=== PATIENT | female | born 1930 | race Caucasian/White ===

== ENCOUNTER 2016-10-13 12:17 | Observation (INO) ==
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
--- NOTE | 2016-10-13 13:07 | Emergency Department Note ---
Disposition Clinical Impression: Hip pain, right, Tendon tear Disposition: Admitted As Inpatient Condition: Fair General Adult HPI - General Chief complaint: ED Fall Stated complaint: fall, R hip increaseed pain Time Seen by Provider: 10/13/16 12:27 Source: patient, family Limitations: no limitations - History of Present Illness Pain Scale: 0 - Related Data Home Medications Medication Instructions Recorded Confirmed Carbidopa/Levodopa 1 tab PO BID 06/19/16 10/13/16 [Carbidopa-Levodopa 25-100 Tab] Nuedexta 10-5 Mg Capsule 1 cap PO QID 06/19/16 10/13/16 Quetiapine Fumarate [Seroquel] 25 mg PO BID 06/19/16 10/13/16 Alendronate Sodium 70 mg PO SA 10/13/16 10/13/16 Ergocalciferol (VITAMIN D2) 50,000 unit PO SA 10/13/16 10/13/16 [Vitamin D2] Ketoconazole Shampoo [Nizoral 1 appl TP 2XW 10/13/16 10/13/16 Shampoo] Previous Rx's Medication Instructions Recorded OxyCODONE/APAP 5/325 [Percocet 1 each PO Q6HR PRN #20 tablet 10/16/16 5/325 MG] Allergies Allergy/AdvReac Type Severity Reaction Status Date / Time Sulfa (Sulfonamide Allergy See Verified 06/19/16 08:00 Antibiotics) Comments Constitutional: Denies: fever, chills, weakness Cardiovascular: Denies: chest pain, palpitations, dyspnea on exertion, syncope Respiratory: Denies: cough, dyspnea, wheezes Gastrointestinal: Denies: abdominal pain, nausea, vomiting, diarrhea, constipation Genitourinary: Denies: urgency, dysuria, frequency Musculoskeletal: Reports: back pain. Denies: neck pain Integumentary: Denies: rash, abrasion Neurological: Reports: abnormal gait. Denies: headache, weakness, numbness, paresthesias, confusion, vertigo Hematological/Lymphatic: Denies: easy bleeding, easy bruising Past Medical History - Past Medical History Medical history: Reports: asthma, other Surgical history: Reports: hysterectomy, orthopedic, other Psychiatric history: Reports: no psych history - Social History Smoking Status: Never smoker Smokeless Tobacco Status: No Alcohol use: Reports: none Drug use: Reports: none Physical Exam - General Limitations: no limitations General appearance: alert Course - Reevaluation(s) Reevaluation #1: I saw the patient with resident, Dr. Peter. Patient presents with right hip pain. She had a fall couple days ago and was actually seen here in the emergency department at which time she had plain x-rays that were negative. She was discharged home. She has since had another fall at home. She has frequent falls at home because she refuses to use her walker. Today he went to the doctor's office and the patient could not bear weight on her right leg so her physician sent her here to be reevaluated. Looking at the imaging studies from the other day there is no fracture seen but she has a lot of osteopenia. On my examination here the patient has pain in the groin with range of motion but not axial load of the hip. We will do an MRI to evaluate for hip fractures. This is a study of choice because the osteopenia. We consult with the radiologist prior to ordering the MRI in order to get the recommendation as to which is the best test. We will get the patient some pain medications and get the MRI. If MRI is positive then we will admit to orthopedics. If the MRI is negative try to ambulate the patient with a walker. Time: 13:06 Reevaluation #2: MRI came back showing an iliopsoas muscle tear. That explains the patient's symptoms. We got her up and ambulate her with a walker. She ambulated well, carrying the walker as she ambulated. She is not physically incapable of getting around and does not need to be admitted to the hospital for physical rehabilitation. However, it seems that the patient's home environment is unsafe. The patient continues to move around without her walker and is continuing to fall down and reinjure herself. Also bruises on her face from previous falls. Family members state that they are not able to give her the care that she seems to be needing. She has other issues including Parkinson's. She also has dementia. It sounds like she is becoming more than the family can handle her home. Had a long [id number] conversation with family about fpc placement and it was felt that since they cannot care for her at home the way that she needs to be cared for and she is continuing to put herself in dangerous positions by getting up and walking around without that walker, is better for her to be in a fpc where she can be watched more closely. We had already had social media strategist in there trying to get the patient placed directly from the ER but because of her insurance we are unable to do so. Patient has to be admitted to the hospital for a three-day stay in order to be placed in a fpc. We will talk to the hospitalists and make this arrangement. Time: 16:57 Vital Signs Temperature 97.3 F L 10/13/16 12:18 Pulse Rate 81 10/13/16 12:18 Respiratory Rate 18 10/13/16 12:18 Blood Pressure 153/71 10/13/16 12:18 O2 Sat by Pulse Oximetry 98 10/13/16 12:18 Temperature 97.8 F 10/17/16 11:11 Pulse Rate 84 10/17/16 11:11 Respiratory Rate 13 10/17/16 11:11 Blood Pressure 125/67 10/17/16 11:11 O2 Sat by Pulse Oximetry 94 L 10/17/16 11:11 Oxygen Delivery Oxygen Delivery Room Air Medical Decision Making - Lab Data Result diagrams: 10/14/16 04:43 10/16/16 04:27 Attestation Statement - Attestation Attestation: I, Dr. Longo, examined this patient [id number] and my medical decision- making was reviewed with Dr. Peter, Resident Physician. I agree with the documented findings, disposition and treatment plan as described except to the extent set forth below. Please see my progress notes for details.
[2016-10-13] MEDS ORDERED: Acetaminophen 325 MG TABLET PO ONE (15:18)
[2016-10-13] MEDS ORDERED: Ondansetron 4 MG/2 ML VIAL IVP PRN (18:15)
[2016-10-13] MEDS ORDERED: Naloxone 0.4 MG/ML INJ IVP PRN (18:15)
--- NOTE | 2016-10-13 18:29 | Internal Med History&Physical ---
Date of Encounter: 10/13/16 Time of Encounter: 17:30 Internal Medicine - H&P: HPI Chief complaint: right hip pain, frequent falls. Admitted From: Emergency Dept Plans for Post Hospital Care: Transfer [facility] Facility History of present illness: Ms. Torres is a 86 year old female with medical history significant for Parkinson' dementia, frequent falls presents right hip pain after multiple falls. She had been evaluated a couple of days ago and absent fracture was discharged from the ER. However, pain persisting, PCP referred her agin to the ED, where MRI was performed showing high grade right iliopsoas tear (with tendon retraction) without fracture/dislocation. The patient fall has been frequent lately, it has been related to Parkinson diease, left foot drop amd her refusal to use walking aide or request assistance from her daughter. She nominates Cynthia Fonseca ([phone]) who is her manager critical care and her NOK/POA. She is DNRCCA. ROS: Right hip pain, left foot drop, tremors related to Parkinson'. No urinary symptoms, no chest pain, no palpitations, no gastrointestinal symptoms. No headaches, no blurry vision, no rash, no cough, no PND, no orthopnea, no bleeding from any orifice PMHx: Parkinson dementia, UTI, Thyroid nodules (declined biopsy), left foot drop , PSHx: none Family hx: mother: liver cirrhosis, father: pancreatic cancer, sister: lung cancer, sister: Lupus, brother: cancer, primary, unknown. Social history: No alcohol use, no smoking, no illicit drug use. Vital Signs Temperature 97.3 F L 10/13/16 12:18 Pulse Rate 81 10/13/16 12:18 Respiratory Rate 18 10/13/16 12:18 Blood Pressure 153/71 10/13/16 12:18 O2 Sat by Pulse Oximetry 98 10/13/16 12:18 Temperature 97.3 F L 10/13/16 12:18 Pulse Rate 80 10/13/16 16:40 Respiratory Rate 18 10/13/16 12:18 Blood Pressure 153/73 10/13/16 16:40 O2 Sat by Pulse Oximetry 95 10/13/16 16:40 Not in distress, not ill/ or toxic looking. Not pale, anicteric, afebrile, acyanotic. Dry mucosa. HEENT: No JVD, no cervical lymphadenopathy, Chest : CTAB Heart: RRR, HS1/2, no m/r/g. Abdomen: soft, non-tender, no guarding, no rebound, no masses, BS+ : No flank tenderness, no CVA tenderness, no suprapubic tenderness. PINION AND WHEEL TRUER: AAO x 3, intermittent tangential talking, left foot drop. Skin:No active skin lesion. Extremities: No pedal edema, normal pedal pulses, no calf tenderness. Osteoarthritis polyarticular, osler/herbedeen nodes in the hands. Hip MRI 10/13/16 12:43 High-grade partial-thickness tear of the iliopsoas tendon attachment onto the lesser trochanter of the right hip with tendon retraction, associated fluid and edema at the site of the tear. This may be a functionally full-thickness tear. Grade 1 strain of the adductor right hip musculature. Likely chronic tear of the posterosuperior right hip labrum with large paralabral cyst. Also likely small tear of the superior anterior right hip labrum. Mild right hip osteoarthritic degenerative changes. Possible subtle edema within the body of the sacrum incompletely visualized or characterized on this exam. Recommend correlation with symptoms of sacral pain. IMP Right hip pain High-grade partial thickness right iliopsoas tear, with tendon retraction Chronic morbidities Parkinson's dementia Frequent falls Left foot drop PLAN Admit Pain control Orthopedic consult PT/OT Fall precautions bedrest. Urinalysis with reflex culture CXR Heparin SC for DVT prophylaxis I discussed my plan and assessment with the patient, her daughter was at bedside , they verbalized understanding and are agreeable to admission. Her daughter, Cynthia Fonseca ([phone]) who is her manager critical care and her NOK/POA is open to surgical intervention if indicated for repair of torn tendon. Past Med Surg Social Fam HX - Past Medical History Medical history: asthma, other Psychiatric history: no psych history - Past Surgical History Surgical History: hysterectomy, orthopedic, other - Social History Smoking Status: Never smoker Smokeless Tobacco Status: No Alcohol use: none Drug use: none - Family History Mother Living Status: Father Living Status: Hx Family Respiratory Disorders: Yes Internal Medicine - H&P: Meds Carbidopa/Levodopa [Carbidopa-Levodopa 25-100 Tab] 1 tab PO BID 06/19/16 [ History] Nuedexta 10-5 Mg Capsule 1 cap PO QID 06/19/16 [History] Quetiapine Fumarate [Seroquel] 25 mg PO BID 06/19/16 [History] OxyCODONE/APAP 5/325 [Percocet 5/325 MG] 1 each PO Q6HR PRN #7 tablet 10/11/16 [ Rx] Alendronate Sodium [Alendronate Sodium] 70 mg PO SA 10/13/16 [History] Ergocalciferol (VITAMIN D2) [Vitamin D2] 50,000 unit PO SA 10/13/16 [History] Ketoconazole Shampoo [Nizoral Shampoo] 1 appl TP 2XW 10/13/16 [History] Allergies Sulfa (Sulfonamide Antibiotics) Allergy (Verified 06/19/16 08:00) See Comments All Systems PM: A 10-system review of systems was performed and is negative for pertinent findings except as documented above in the HPI. - Constitutional Vitals: Temp Pulse Resp BP Pulse Ox 98 F 71 16 162/88 95 10/13/16 17:31 10/13/16 17:31 10/13/16 17:31 10/13/16 17:31 10/13/16 17:31
[2016-10-13] MEDS: Carbidopa/Levodopa 25/100 TABLET PO SCH (20:30)
[2016-10-13] MEDS: *HR* Heparin 5,000 UNIT/ML VIAL SQ SCH (20:31)
[2016-10-13] MEDS: QUINIDINE PO SCH (20:31)
[2016-10-13] MEDS: DEXTROMETHORPHAN PO SCH (20:31)
[2016-10-13] MEDS: *HR* OxyCODONE/APAP 5/325 TABLET PO PRN (20:31)
[2016-10-14 04:57] LABS: Basophils % 0.2 %; Eosinophils % 0.4 %; Hematocrit 36.5 % (35.3-44.9); Hemoglobin 12.2 g/dL (11.5-15.4); Immature Granulocytes % 0.3 % (0-4); Lymphocytes % 11.1 %; Mean Corpuscular HGB Conc 33.4 g/dL (31.6-35.5); Mean Corpuscular Hemoglobin 30.5 pg (28.0-33.3); Mean Corpuscular Volume 91.3 fL (83.0-100.0); Mean Platelet Volume 9.5 fL (9.4-12.4); Monocytes # 0.7 K/mcL (0.0-1.3); Monocytes % 7.6 %; Neutrophils # 7.5 K/mcL (1.6-8.9); Platelet Count 175 K/mcL (140-400); Red Cell Distribution Width 11.9 % (11.5-14.5); Segmented Neutrophils % 80.4 %
[2016-10-14 05:11] LABS: BUN/Creatinine Ratio 34 (6-26); Blood Urea Nitrogen 29 mg/dL (7-20); Calcium 8.7 mg/dL (8.6-10.8); Carbon Dioxide 26 mEq/L (19-29); Chloride 107 mEq/L (98-109); Glucose 106 mg/dL (70-99); Osmolality,Calculated 296 (280-300); Potassium 4.7 mEq/L (3.5-4.5); Sodium 140 mEq/L (136-145); eGFR For African Americans > 60 (> 60); eGFR For Non-African Americans > 60 (> 60)
[2016-10-14] MEDS: *HR* Heparin 5,000 UNIT/ML VIAL SQ SCH ×2 (05:38→17:22)
[2016-10-14 07:06] LABS: Bilirubin,Urine Negative (Negative); Blood,Urine Negative (Negative); Clarity,Urine Clear (Clear); Color,Urine Yellow (Yellow); Glucose,Urine (UA) Normal (Normal); Ketones,Urine Negative (Negative); Leukocyte Esterase,Urine Negative (Negative); Nitrite,Urine Negative (Negative); Protein,Urine Negative (Neg-Trace); Urobilinogen,Urine Normal (Normal)
[2016-10-14] MEDS: QUINIDINE PO SCH ×4 (07:54→20:29)
[2016-10-14] MEDS: Carbidopa/Levodopa 25/100 TABLET PO SCH ×2 (07:54→20:29)
[2016-10-14] MEDS: DEXTROMETHORPHAN PO SCH ×4 (07:54→20:29)
[2016-10-14] MEDS: *HR* OxyCODONE/APAP 5/325 TABLET PO PRN ×3 (08:03→20:29)
--- NOTE | 2016-10-14 16:37 | Internal Med Progress Note ---
<Clem Jackson - Last Filed: 10/14/16 17:06> Date of Encounter: 10/14/16 Time of Encounter: 11:55 - Assessment and plan (1) Tendon tear Current Visit: Yes Status: Acute Assessment and plan: high grade tear of the iliopsoas tendon distal to the lesser trachanteric attachement. ortho consulted. Dr. Cruz will see as outpatient. PT /OT Possible DC on Sunday to , (2) Parkinsons Current Visit: Yes Status: Acute Assessment and plan: Continue home medications Fall precautions. (3) Parkinson's disease dementia Current Visit: Yes Status: Acute Assessment and plan: currently at baseline. Qualifiers: Qualified Code(s): G20 - Parkinson's disease; F02.81 - Dementia in other diseases classified elsewhere with behavioral disturbance (4) Frequent falls Current Visit: Yes Status: Acute Assessment and plan: Recent CT of the head shows no acute abnormalities. (5) Hyperkalemia Current Visit: Yes Status: Acute (6) DVT prophylaxis Current Visit: Yes Status: Acute - Subjective Interval history: Mrs Torres is an 86 y.o. female with parkinsons, dementia , and foot drop who was admitted for a high grade iliopsoas tear. She has frequent falls and refuses to use her assist devices. Currently she is somewhat confused. However drang daughter is currently present and states this is her baseline. PAtient has no complaints or concerns at this time. She denies pain or discomfort. - Constitutional Vitals: Temp Pulse Resp BP Pulse Ox 98.7 F 81 16 131/68 93 L 10/14/16 15:10 10/14/16 15:10 10/14/16 15:10 10/14/16 15:10 10/14/16 15:10 General appearance: Present: A&O X 1, pleasant, no acute distress - Head Head exam: Present: atraumatic, normal inspection, normocephalic - Eye Eye exam: Present: PERRL, conjuntiva pink, sclera anicteric Pupils: Present: PERRL - Neck Neck exam general surgery: Present: supple, trachea midline. Absent: lymphadenopathy - Respiratory Respiratory exam: Present: CTAB. Absent: accessory muscle use, rales, rhonchi, wheezes - Cardiovascular Cardiovascular exam: Present: RRR, +S1, +S2. Absent: diastolic murmur, gallop, rubs, systolic murmur - GI/Abdominal GI/Abdominal exam: Present: normal bowel sounds, soft, no peritoneal signs. Absent: distended, tenderness - Extremities Exam Extremities exam: Present: warm, radial pulses palpable and symetrical. Absent : calf tenderness, cyanotic, pedal edema Additional comments: resting tremor of the hands BL. R> L - Skin Skin exam: Present: dry, intact Internal Medicine: Result - Labs CBC & Chem 7: 10/14/16 04:43 10/14/16 04:43 Labs: Short CBC 10/14/16 Range/Units 04:43 WBC 9.3 (4.3-11.1) K/mcL Hgb 12.2 (11.5-15.4) g/dL Hct 36.5 (35.3-44.9) % Plt Count 175 (140-400) K/mcL Neutrophils # 7.5 (1.6-8.9) K/mcL BMP 10/14/16 04:43 Sodium 140 Potassium 4.7 H Chloride 107 Carbon Dioxide 26 BUN 29 H Creatinine 0.86 Glucose 106 H Calcium 8.7 Urine 10/14/16 Range/Units 06:51 Urine Color Yellow (Yellow) Urine Clarity Clear (Clear) Urine pH 7.0 (5.0-8.0) pH Units Ur Specific [place] 1.020 (1.010-1.025) Urine Protein Negative (Neg-Trace) mg/dL Urine Glucose (UA) Normal (Normal) mg/dL - Impressions Impressions Chest X-Ray 10/13/16 18:49 IMPRESSION: No evidence for acute cardiopulmonary process. D/ / Nomi Jolly MD / Nomi Jolly MD Interpreting Provider: Nomi Jolly MD Consult Discharge Plan - Plan Referrals: Yovana Montero DO [Primary Care Provider] - <Bobo Mendoza - Last Filed: 10/14/16 17:42> Date of Encounter: 10/14/16 - Constitutional Vitals: Temp Pulse Resp BP Pulse Ox 98.7 F 81 16 131/68 93 L 10/14/16 15:10 10/14/16 15:10 10/14/16 15:10 10/14/16 15:10 10/14/16 15:10 Internal Medicine: Result - Labs CBC & Chem 7: 10/14/16 04:43 10/14/16 04:43 Labs: Short CBC 10/14/16 Range/Units 04:43 WBC 9.3 (4.3-11.1) K/mcL Hgb 12.2 (11.5-15.4) g/dL Hct 36.5 (35.3-44.9) % Plt Count 175 (140-400) K/mcL Neutrophils # 7.5 (1.6-8.9) K/mcL BMP 10/14/16 04:43 Sodium 140 Potassium 4.7 H Chloride 107 Carbon Dioxide 26 BUN 29 H Creatinine 0.86 Glucose 106 H Calcium 8.7 Urine 10/14/16 Range/Units 06:51 Urine Color Yellow (Yellow) Urine Clarity Clear (Clear) Urine pH 7.0 (5.0-8.0) pH Units Ur Specific [place] 1.020 (1.010-1.025) Urine Protein Negative (Neg-Trace) mg/dL Urine Glucose (UA) Normal (Normal) mg/dL - Impressions Impressions Chest X-Ray 10/13/16 18:49 IMPRESSION: No evidence for acute cardiopulmonary process. D/ / Nomi Jolly MD / Nomi Jolly MD Interpreting Provider: Nomi Jolly MD - Attending Attestation I examined this patient and my medical decision-making was reviewed with the REMOTE SENSING PROGRAM MANAGER/PA/Advanced Practice Nurse/Resident Physician. I agree with the documented findings, disposition and treatment plan as described except to the extent set forth below. PT eval, geriatric social work professor eval. D/W patient and her daughter.
[2016-10-15] MEDS: *HR* OxyCODONE/APAP 5/325 TABLET PO PRN ×3 (05:29→20:19)
[2016-10-15] MEDS: *HR* Heparin 5,000 UNIT/ML VIAL SQ SCH ×2 (05:30→17:33)
[2016-10-15] MEDS: Carbidopa/Levodopa 25/100 TABLET PO SCH ×2 (09:27→20:20)
[2016-10-15] MEDS: QUINIDINE PO SCH ×4 (09:28→20:19)
[2016-10-15] MEDS: DEXTROMETHORPHAN PO SCH ×4 (09:28→20:19)
--- NOTE | 2016-10-15 18:38 | Internal Med Progress Note ---
<Clem Jackson - Last Filed: 10/15/16 18:39> Date of Encounter: 10/15/16 Time of Encounter: 12:25 - Assessment and plan (1) Tendon tear Current Visit: Yes Status: Acute Assessment and plan: high grade tear of the iliopsoas tendon distal to the lesser trachanteric attachement. ortho consulted. Dr. Cruz will see as outpatient. PT /OT Possible DC on tomorrow to [facility], (2) Parkinsons Current Visit: Yes Status: Acute Assessment and plan: Continue home medications Fall precautions. (3) Parkinson's disease dementia Current Visit: Yes Status: Acute Assessment and plan: currently at baseline. Qualifiers: Qualified Code(s): G20 - Parkinson's disease; F02.81 - Dementia in other diseases classified elsewhere with behavioral disturbance (4) Frequent falls Current Visit: Yes Status: Acute Assessment and plan: Recent CT of the head shows no acute abnormalities. (5) Hyperkalemia Current Visit: Yes Status: Acute Assessment and plan: mild repeat BMp in the AM. (6) DVT prophylaxis Current Visit: Yes Status: Acute Assessment and plan: SQ heparin - Subjective Interval history: Patient is a poor historian. No family currently present. She denies any pain or discomfort. she denies difficulty breathing, abdominal pain, or any other complaints at this time. - Constitutional Vitals: Temp Pulse Resp BP Pulse Ox 98.0 F 88 16 160/81 93 L 10/15/16 15:08 10/15/16 15:08 10/15/16 15:08 10/15/16 15:08 10/15/16 15:08 General appearance: Present: A&O X 1, pleasant, no acute distress - Head Head exam: Present: atraumatic, normocephalic - Eye Eye exam: Present: PERRL, conjuntiva pink, sclera anicteric Pupils: Present: PERRL - Neck Neck exam general surgery: Present: supple, trachea midline. Absent: lymphadenopathy - Respiratory Respiratory exam: Present: CTAB. Absent: accessory muscle use, rales, rhonchi, wheezes - Cardiovascular Cardiovascular exam: Present: RRR, +S1, +S2. Absent: diastolic murmur, gallop, rubs, systolic murmur - GI/Abdominal GI/Abdominal exam: Present: normal bowel sounds, soft, no peritoneal signs. Absent: distended, tenderness - Extremities Exam Extremities exam: Present: warm, radial pulses palpable and symetrical. Absent : calf tenderness, cyanotic, pedal edema Additional comments: Tender over left hip with palpation - Skin Skin exam: Present: dry, intact Internal Medicine: Result - Labs CBC & Chem 7: 10/14/16 04:43 10/14/16 04:43 Consult Discharge Plan - Plan Referrals: Yovana Montero DO [Primary Care Provider] - Prescriptions: OxyCODONE/APAP 5/325 [Percocet 5/325 MG] 1 each PO Q6HR PRN #20 tablet PRN Reason: Moderate Pain <Bobo Mendoza - Last Filed: 10/16/16 07:32> Date of Encounter: 10/16/16 - Constitutional Vitals: Temp Pulse Resp BP Pulse Ox 98.4 F 83 14 139/70 93 L 10/16/16 07:14 10/16/16 07:14 10/16/16 07:14 10/16/16 07:14 10/16/16 07:14 Internal Medicine: Result - Labs CBC & Chem 7: 10/14/16 04:43 10/16/16 04:27 Labs: BMP 10/16/16 04:27 Sodium 138 Potassium 4.0 Chloride 107 Carbon Dioxide 23 BUN 21 H Creatinine 0.86 Glucose 88 Calcium 8.1 L - Attending Attestation I examined this patient and my medical decision-making was reviewed with the TRAILER PARK MANAGER/PA/Advanced Practice Nurse/Resident Physician. I agree with the documented findings, disposition and treatment plan as described except to the extent set forth below. Ms. Torres was seen and examined on rounds, evaluation by physical therapy pending. Possible placement. Follow up with sports medicine upon discharge.
[2016-10-16] MEDS: *HR* OxyCODONE/APAP 5/325 TABLET PO PRN ×3 (03:51→20:00)
[2016-10-16 05:07] LABS: BUN/Creatinine Ratio 24 (6-26); Blood Urea Nitrogen 21 mg/dL (7-20); Calcium 8.1 mg/dL (8.6-10.8); Carbon Dioxide 23 mEq/L (19-29); Chloride 107 mEq/L (98-109); Glucose 88 mg/dL (70-99); Osmolality,Calculated 288 (280-300); Sodium 138 mEq/L (136-145); eGFR For African Americans > 60 (> 60); eGFR For Non-African Americans > 60 (> 60)
--- NOTE | 2016-10-16 06:17 | Discharge Summary ---
<Clem Jackson - Last Filed: 10/16/16 09:52> Date of Encounter: 10/16/16 Time of Encounter: 06:15 - Discharge Diagnosis (1) Tendon tear Priority: Primary Status: Acute (2) Parkinsons Priority: Secondary Status: Acute (3) Parkinson's disease dementia Priority: Secondary Status: Acute Qualifiers: Qualified Code(s): G20 - Parkinson's disease; F02.81 - Dementia in other diseases classified elsewhere with behavioral disturbance (4) Frequent falls Priority: Secondary Status: Acute (5) Hyperkalemia Priority: Secondary Status: Acute (6) DVT prophylaxis Priority: Secondary Status: Acute - Discharge Medications Prescriptions: OxyCODONE/APAP 5/325 [Percocet 5/325 MG] 1 each PO Q6HR PRN #20 tablet PRN Reason: Moderate Pain Home Medications: Carbidopa/Levodopa [Carbidopa-Levodopa 25-100 Tab] 1 tab PO BID 06/19/16 [ History] Nuedexta 10-5 Mg Capsule 1 cap PO QID 06/19/16 [History] Quetiapine Fumarate [Seroquel] 25 mg PO BID 06/19/16 [History] Alendronate Sodium 70 mg PO SA 10/13/16 [History] Ergocalciferol (VITAMIN D2) [Vitamin D2] 50,000 unit PO SA 10/13/16 [History] Ketoconazole Shampoo [Nizoral Shampoo] 1 appl TP 2XW 10/13/16 [History] OxyCODONE/APAP 5/325 [Percocet 5/325 MG] 1 each PO Q6HR PRN #20 tablet 10/16/16 [Rx] Allergies/Adverse Reactions: Allergies Sulfa (Sulfonamide Antibiotics) Allergy (Verified 06/19/16 08:00) See Comments Date of admission: 10/13/16 16:48 Primary care physician: Pranav Ortiz Consults: 10/13/16 18:13 Consult to Orthopedic Surgery [CONS] Routine Consulting Provider: Orthopedic and Sports Medicine Reason for Consult: High grade iliopsoas tear. Call Completed: Yes 10/13/16 18:21 Consult to Occupational Therapy [CONS] Routine Comment: Evaluate, develop and implement POC Consult to Physical Therapy [CONS] Routine Comment: Evaluate, develop and implement POC Consult to Laboratory Apparatus Glass Grinder [CONS] Routine Reason for SW Consult: discharge planning 10/13/16 18:28 Consult to Pastoral Services [CONS] Routine Comment: Discharging clinician: Clem Jackson Anticipated date of discharge: 10/16/16 - Patient Status Disposition: Transfer SNF Condition: Fair Functional capacity at discharge: uses cane/walker Overall status at discharge: patient is progressing back to baseline - Discharge Instructions Follow Up With: Yovana Montero DO [Primary Care Provider] - - Diet and Activity Activity: as per physical therapy Diet: advance to your usual diet Hospital course: Ms. Torres is a 86 year old female with Parkinson's disease as well as Parkinson's dementia. At her baseline she is orientated to self only. She was admitted to [facility] after multiple falls. She did have a CT of the head that was negative for any acute intracranial abnormalities or bleeding. According to her family her mentation was at baseline. However she did have an MRI of the hip showed high-grade ileus so as tear just proximal to the lesser trochanter insertion of the left hip. She has had a uncomplicated hospital course. Her vital signs have been within normal limits. This morning she has no major lab abnormalities. We will discharge her today to extended care facility for inpatient rehabilitation. She will follow-up with Dr. Coreas with orthopedic surgery for her iliopsoas tear. - Time Spent with Patient Total time spent providing and/or coordinating discharge services: Less than 30 minutes - Constitutional Vitals: Temp Pulse Resp BP Pulse Ox 97.8 F 73 15 148/64 93 L 10/16/16 03:46 10/16/16 03:46 10/16/16 03:46 10/16/16 03:46 10/16/16 03:46 Exam: General: This is a well-developed well-nourished 86-year-old female. She is currently alert and orientated only to self. No change from prior exams. She is lying in bed appears comfortable acute distress this time. HEENT: His systolic atraumatic. There is some mild ecchymosis around the eyes pedal bilaterally also has some yellow pigmentation indicating an old bruise. Mucous membranes are moist. Pupils equal round react light and accommodation. Anicteric sclera. Neck supple without mass or thyromegaly. No cervical or supraclavicular lymphadenopathy palpable on exam. Heart: Regular rate and rhythm without murmurs rubs or gallops. lungs: Clear to auscultation bilaterally. Is a normal effort of breathing. There is symmetrical rise and fall of the chest wall bilaterally. Abdomen: The abdomen is soft, nondistended, nontender palpation. Musculoskeletal: She does have some mild diffuse muscle atrophy but otherwise no gross deformity noted. Pulses in lower extremities bilaterally. Integument: There is no rash or lesion noted. <KellyBobo R - Last Filed: 10/16/16 18:17> Date of Encounter: 10/16/16 Date of admission: 10/13/16 16:48 Primary care physician: Pranav Ortiz Consults: 10/13/16 18:13 Consult to Orthopedic Surgery [CONS] Routine Consulting Provider: Orthopedic and Sports Medicine Reason for Consult: High grade iliopsoas tear. Call Completed: Yes 10/13/16 18:21 Consult to Occupational Therapy [CONS] Routine Comment: Evaluate, develop and implement POC Consult to Physical Therapy [CONS] Routine Comment: Evaluate, develop and implement POC Consult to Laboratory Apparatus Glass Grinder [CONS] Routine Reason for SW Consult: discharge planning 10/13/16 18:28 Consult to Pastoral Services [CONS] Routine Comment: Hospital course: Ms. Torres is a 86 year old female - Time Spent with Patient Total time spent providing and/or coordinating discharge services: - Constitutional Vitals: Temp Pulse Resp BP Pulse Ox 98.3 F 86 14 136/68 94 L 10/16/16 17:00 10/16/16 17:00 10/16/16 17:00 10/16/16 17:00 10/16/16 17:00 - Attending Attestation I examined this patient and my medical decision-making was reviewed with the SUBSTITUTE BUS DRIVER/PA/Advanced Practice Nurse/Resident Physician. I agree with the documented findings, disposition and treatment plan as described except to the extent set forth below. 86 year old female with Parkinson's disease and Parkinson's dementia. She was admitted after having multiple falls. CT of the head that was negative for any acute intracranial abnormalities or bleeding. MRI of the hip showed high-grade ileus so as tear just proximal to the lesser trochanter insertion of the left hip. She has had a uncomplicated hospital course. Her vital signs have been within normal limits. Discharged today to extended care facility for inpatient rehabilitation. Follow-up with sports medicine team as outpatient for her iliopsoas tear.
--- NOTE | 2016-10-16 06:23 | Physician Discharge Referral ---
ExtendedCare Referral Info Transfer To: F Provider in Charge after Transfer: PCP Institutional Level of Care: Skilled - Diagnosis (1) Tendon tear Status: Acute (2) Parkinsons Status: Acute (3) Parkinson's disease dementia Status: Acute (4) Frequent falls Status: Acute (5) Hyperkalemia Status: Acute (6) DVT prophylaxis Status: Acute - Transfer Medications Prescriptions: OxyCODONE/APAP 5/325 [Percocet 5/325 MG] 1 each PO Q6HR PRN #20 tablet PRN Reason: Moderate Pain Home Medications: Carbidopa/Levodopa [Carbidopa-Levodopa 25-100 Tab] 1 tab PO BID 06/19/16 [ History] Nuedexta 10-5 Mg Capsule 1 cap PO QID 06/19/16 [History] Quetiapine Fumarate [Seroquel] 25 mg PO BID 06/19/16 [History] Alendronate Sodium 70 mg PO SA 10/13/16 [History] Ergocalciferol (VITAMIN D2) [Vitamin D2] 50,000 unit PO SA 10/13/16 [History] Ketoconazole Shampoo [Nizoral Shampoo] 1 appl TP 2XW 10/13/16 [History] OxyCODONE/APAP 5/325 [Percocet 5/325 MG] 1 each PO Q6HR PRN #20 tablet 10/16/16 [Rx] Allergies/Adverse Reactions: Allergies Sulfa (Sulfonamide Antibiotics) Allergy (Verified 06/19/16 08:00) See Comments - Respiratory Orders Smoking Cessation: Smoking cessation has been advised. For more information, call the [place] Tobacco Quit Line at 6-695-XCAR-NOW. - Ancillary Orders May use pressure relief devices daily prn - Advance Directives Living Will: No Power of [employer]: No Code Status: DNR-Arrest - Mobility Orders Other (Per PT/OT) - Rehabiliation Orders Rehab Potential: Fair Rehab Orders: Evaluation for Physical Therapy, Evaluation for Occupational Therapy - Treatments Skin tear care topically daily PRN per policy - Diet Orders Cardiac CERTIFICATION: I certify that the transfer of the above named patient to an Extended Care Facility is necessary for the continuing treatment of the diagnosis listed. The above information is true and accurate reflection of patient's current condition. Confidential - Redisclosure prohibited without a patient's written consent.
[2016-10-16] MEDS: *HR* Heparin 5,000 UNIT/ML VIAL SQ SCH ×2 (06:47→16:55)
[2016-10-16] MEDS: Carbidopa/Levodopa 25/100 TABLET PO SCH ×2 (07:58→20:00)
[2016-10-16] MEDS: QUINIDINE PO SCH ×4 (07:58→19:59)
[2016-10-16] MEDS: DEXTROMETHORPHAN PO SCH ×4 (07:58→19:59)
[2016-10-17] MEDS: *HR* Heparin 5,000 UNIT/ML VIAL SQ SCH (05:26)
[2016-10-17] MEDS: *HR* OxyCODONE/APAP 5/325 TABLET PO PRN ×2 (05:26→13:19)
[2016-10-17] MEDS: QUINIDINE PO SCH ×2 (09:41→13:20)
[2016-10-17] MEDS: DEXTROMETHORPHAN PO SCH ×2 (09:41→13:20)
[2016-10-17] MEDS: Carbidopa/Levodopa 25/100 TABLET PO SCH (09:41)
[2016-10-17 11:12] VITALS: BP 125/67
--- NOTE | 2016-10-17 12:03 | Internal Med Progress Note ---
Date of Encounter: 10/17/16 Time of Encounter: 10:00 - Assessment and plan (1) DVT prophylaxis Current Visit: Yes Status: Chronic Assessment and plan: SQ heparin (2) Frequent falls Current Visit: Yes Status: Acute Assessment and plan: Recent CT of the head shows no acute abnormalities. Fall precautions (3) Hyperkalemia Current Visit: Yes Status: Acute Assessment and plan: Resolved (4) Parkinson's disease dementia Current Visit: Yes Status: Acute Assessment and plan: currently at baseline. Qualifiers: Qualified Code(s): G20 - Parkinson's disease; F02.81 - Dementia in other diseases classified elsewhere with behavioral disturbance (5) Parkinsons Current Visit: Yes Status: Acute Assessment and plan: Continue home medications Fall precautions. (6) Tendon tear Current Visit: Yes Status: Acute Assessment and plan: high grade tear of the iliopsoas tendon distal to the lesser trachanteric attachement. No intervention in-patient Follow up wit ortho as OP - Subjective Interval history: Ms. Torres is a 86 year old female with Parkinson's disease as well as Parkinson's dementia. At her baseline she is orientated to self only. She was admitted to [facility] after multiple falls. She did have a CT of the head that was negative for any acute intracranial abnormalities or bleeding. According to her family her mentation was at baseline. However she did have an MRI of the hip showed high-grade ileus so as tear just proximal to the lesser trochanter insertion of the left hip. She has had a uncomplicated hospital course. She is seen this morning, awaiting placement authorization, SW is aware She is otherwise stable with no major lab abnormalities. We will discharge her today to extended care facility for inpatient rehabilitation once authorized Continue present management Fall precautions She will follow-up with Dr. Coreas with orthopedic surgery for her iliopsoas tear. - Constitutional Vitals: Temp Pulse Resp BP Pulse Ox 97.8 F 84 13 125/67 94 L 10/17/16 11:11 10/17/16 11:11 10/17/16 11:11 10/17/16 11:11 10/17/16 11:11 General appearance: Present: A&O X 1, pleasant, no acute distress - Head Head exam: Present: atraumatic, normal inspection, normocephalic - Eye Eye exam: Present: PERRL, conjuntiva pink, sclera anicteric Additional comments: L christina-orbital ecchymoses. - ENT ENT exam: Present: mucous membranes moist - Neck Neck exam general surgery: Present: supple, trachea midline. Absent: lymphadenopathy - Respiratory Respiratory exam: Present: CTAB. Absent: accessory muscle use, rales, rhonchi, wheezes - Cardiovascular Cardiovascular exam: Present: RRR, +S1, +S2. Absent: diastolic murmur, gallop, rubs, systolic murmur - GI/Abdominal GI/Abdominal exam: Present: normal bowel sounds, soft, no peritoneal signs. Absent: distended, tenderness - Extremities Exam Extremities exam: Present: warm, radial pulses palpable and symetrical. Absent : calf tenderness, cyanotic, pedal edema - Neurological Exam Neurological exam: Present: CN II-XII intact, no focal deficits. Absent: pronater drift, facial droop, speech deficit - Skin Skin exam: Present: dry, intact Internal Medicine: Result - Labs CBC & Chem 7: 10/14/16 04:43 10/16/16 04:27 Consult Discharge Plan - Plan Referrals: Yovana Montero DO [Primary Care Provider] - 12/25/16 3:45 pm Billy Hua MD [Partnered Physician] - 10/18/16 10:15 am Michael Gates DO [Partnered Physician] - 10/19/16 11:00 am Prescriptions: OxyCODONE/APAP 5/325 [Percocet 5/325 MG] 1 each PO Q6HR PRN #20 tablet PRN Reason: Moderate Pain
== END 2016-10-17 16:30 ==
LOC: 3NENU 12:17 → EMEROO 12:17 → SUATTDRO 16:48 → 3NENU 17:13
PROVIDERS: ADMIT Internal Medicine; ATTEND Internal Medicine

== ENCOUNTER 2017-11-14 14:41 | Inpatient (IN) ==
--- NOTE | 2017-11-14 15:01 | Emergency Department Note ---
Disposition Clinical Impression: Hypernatremia Altered mental status Qualifiers: Altered mental status type: unspecified Qualified Code(s): R41.82 - Altered mental status, unspecified Disposition: Admitted As Inpatient Condition: Fair Referrals: NONE,PCP [Primary Care Provider] - Forms: ED Satisfaction Letter Time of Disposition: 18:38 General Adult HPI - General Chief complaint: ED Altered Mental Status Stated complaint: abnormal labs Time Seen by Provider: 11/14/17 15:00 Source: family, EMS Mode of arrival: EMS Limitations: altered mental status Nursing Notes Reviewed: Yes Vital Signs Reviewed: Yes - History of Present Illness HPI Narrative: Patient is an 87-year-old female who presented today from the senior living via EMS due to altered mental status, hypernatremia. Patient also has family member at bedside. According to EMS and family member, the patient has been altered for the past 2-3 days. She has baseline dementia but is still usually able to carry on a small amount of conversation. However, she has been fairly unresponsive over the past 2 days. Patient is a DNR CCA. At the senior living, she had a basic lab workup that showed hypernatremia in the 160s. They tried to do urinalysis but were unable to get a sample. I talked with both the family member here and the power of assistant prosecuting attorney Kaitlynn Re. She has stated that she wants comfort care measures including fluids, antibiotics if needed, urinalysis, chest x-ray. She does not want a head scan performed at this time because she says that even if there was a bleed, they would not perform any heroic measures. The other family member that is in the room at this time agrees. They have requested that she be admitted to the hospital for palliative care. Otherwise, no further review of systems able to be obtained at this time. Outside laboratory results: Sodium 162 Potassium 3.9 Chloride 127 CO2 28 BUN 73 Creatinine 1.56 GFR 31 Glucose 102 Calcium 9.5 - Related Data Home Medications Medication Instructions Recorded Confirmed Carbidopa/Levodopa 1 tab PO BID 06/19/16 11/03/16 [Carbidopa-Levodopa 25-100 Tab] Dextromethorphan HBr/Quinidine 1 each PO BID #0 06/19/16 11/03/16 [Nuedexta 20-10 mg Capsule] Quetiapine Fumarate [Seroquel] 25 mg PO BID 06/19/16 11/03/16 Alendronate Sodium 70 mg PO SA 10/13/16 11/03/16 Ergocalciferol (VITAMIN D2) 50,000 unit PO SA 10/13/16 11/03/16 [Vitamin D2] Ketoconazole Shampoo [Nizoral 1 appl TP 2XW 10/13/16 11/03/16 Shampoo] Bisacodyl [Dulcolax] 10 mg RC DAILY PRN 10/27/16 11/03/16 Cyanocobalamin (Vitamin B-12) 2,000 mcg PO DAILY 10/27/16 11/03/16 [Vitamin B-12] Lactulose 30 ml PO DAILY PRN 10/27/16 11/03/16 Magnesium Hydroxide [Milk of 30 ml PO DAILY PRN 10/27/16 11/03/16 Magnesia] Previous Rx's Medication Instructions Recorded HYDROcodone/Acet 7.5/325 mg [[place] 1 tab PO Q6H PRN #50 tablet 10/27/16 7.5-325 mg] Clindamycin HCl 300 mg PO Q6HR #56 capsule 11/03/16 Allergies Allergy/AdvReac Type Severity Reaction Status Date / Time Sulfa (Sulfonamide Allergy See Verified 11/03/16 14:29 Antibiotics) Comments Limitations: ROS unobtainable due to patients medical condition Past Medical History - Past Medical History Attestation: Yes The following information was validated with the patient. Source: other Medical history: Reports: asthma, dementia, osteoporosis, other Surgical history: Reports: hysterectomy, orthopedic, other Psychiatric history: Reports: depression - Social History Smoking Status: Never smoker Smokeless Tobacco Status: No Alcohol use: Reports: none Drug use: Reports: none Physical Exam - General Limitations: altered mental status General appearance: obtunded - Head Head exam: atraumatic, normocephalic, normal inspection - Eye Eye exam: Present: PERRL, EOMI - ENT ENT exam: normal exam, normal oropharynx, mucous membranes moist - Neck Neck exam: Present: normal inspection, full ROM, trachea midline - Chest Chest inspection: Present: normal inspection, symmetric chest wall rise - Respiratory Respiratory exam: Present: normal lung sounds bilaterally - Cardiovascular Cardiovascular exam: Present: regular rate, normal rhythm, normal heart sounds - Abdominal Exam Abdominal exam: Present: soft, other (firm). Absent: tenderness, distention, guarding, rebound, rigidity - Extremities Exam Extremities exam: Present: normal inspection, full ROM. Absent: tenderness, pedal edema - Neurological Exam Neurological exam: Present: other (obtunded, not able to follow any commands, cannot assess cranial nerves or extremity ROM; rigidity of extremities) - Psychiatric Psychiatric exam: Present: other - Skin Skin exam: Present: warm, dry, intact, normal color Course Course Narrative: Patient only tachycardic. Otherwise, the rest of the vitals were within normal limits. Physical exam shows the patient who is minimally responsive. She will withdrawal to pain. not able to follow any commands, cannot assess cranial nerves or extremity ROM; rigidity of extremities consistent with Parkinson's. Abdomen is firm but does not appear to be tender. Family wants very basic care at this time. They are agreeable with fluids, urinalysis, chest x-ray. Basic labs were already performed and significant for hyponatremia in the 160s. Family prefers that the patient be admitted here for palliative care. I talked with Dr. Carroll and he currently does not have any palate and dad. However, he recommends that the patient be admitted to medicine and he will act as a consult I discussed with the family further care, possible hospice at senior living versus palliative care here in the hospital. Consult has been placed. We will start the patient on D5 water at 125 mL per hour for hypernatremia, this is following recommendations from up-to-date using anywhere from 3-5ml/kg/hr for hypernatremia. 16:06 chest x-ray negative for any acute cardiopulmonary process. Currently waiting on urinalysis. Will admit to the hospitalist for further care after urine is back. 17:44 Art unable to be placed at this time, 2 techs and nurses try to bedside. There is also report that senior living tried to get art and was unable to do so. Bedside ultrasound showed around 200 mL of urine in her bladder, not distended at this time. Unable to get urine specimen. We will discuss this with the hospitalist and see if they want us to empirically treat the patient for UTI without a specimen 18:37 Hospitalist did not want to start empiric antibiotics at this time , will wait for urine sample. Chest X-Ray 11/14/17 15:09 IMPRESSION: 1. No active pulmonary disease. D/ / Chico Thorpe MD / Chico Thorpe MD Interpreting Provider: Chico Thorpe MD Vital Signs Temperature 98.4 F 11/14/17 15:05 Pulse Rate 101 11/14/17 15:05 Respiratory Rate 18 11/14/17 15:05 Blood Pressure 153/63 11/14/17 15:05 O2 Sat by Pulse Oximetry 98 11/14/17 15:05 Temperature 98.4 F 11/14/17 17:00 Pulse Rate 101 11/14/17 17:39 Respiratory Rate 16 11/14/17 17:39 Blood Pressure 160/73 11/14/17 17:39 O2 Sat by Pulse Oximetry 96 11/14/17 17:39 Oxygen Delivery Oxygen Delivery Room Air Medical Decision Making - MDM Narrative Medical decision making narrative: Patient only tachycardic. Otherwise, the rest of the vitals were within normal limits. Physical exam shows the patient who is minimally responsive. She will withdrawal to pain. not able to follow any commands, cannot assess cranial nerves or extremity ROM; rigidity of extremities consistent with Parkinson's. Abdomen is firm but does not appear to be tender. Family wants very basic care at this time. They are agreeable with fluids, urinalysis, chest x-ray. Basic labs were already performed and significant for hyponatremia in the 160s. Family prefers that the patient be admitted here for palliative care. I talked with Dr. Carroll and he currently does not have any palate and dad. However, he recommends that the patient be admitted to medicine and he will act as a consult I discussed with the family further care, possible hospice at senior living versus palliative care here in the hospital. Consult has been placed. We will start the patient on D5 water at 125 mL per hour for hypernatremia, this is following recommendations from up-to-date using anywhere from 3-5ml/kg/hr for hypernatremia. 16:06 chest x-ray negative for any acute cardiopulmonary process. Currently waiting on urinalysis. Will admit to the hospitalist for further care after urine is back. 17:44 Art unable to be placed at this time, 2 techs and nurses try to bedside. There is also report that senior living tried to get art and was unable to do so. Bedside ultrasound showed around 200 mL of urine in her bladder, not distended at this time. Unable to get urine specimen. We will discuss this with the hospitalist and see if they want us to empirically treat the patient for UTI without a specimen 18:37 Hospitalist did not want to start empiric antibiotics at this time , will wait for urine sample. - Medical Records Medical records reviewed: Yes I reviewed the patient's medical records. - Lab Data Lab results reviewed: Yes I reviewed the patient's lab results. - Radiology Data Radiology results reviewed: Yes I reviewed the patient's radiology results. Chest X-Ray 11/14/17 15:09 IMPRESSION: 1. No active pulmonary disease. D/ / Chico Thorpe MD / Chico Thorpe MD Interpreting Provider: Chico Thorpe MD itlali - Kishore Situation: Demographics, MOA Background: Presenting Complaint, Relevant PMH, Meds, & Allergies Assessment: Vital Signs, Course and respsone to treatment, Exam Concerns, Patient/Family Expectation, Pertinant Lab Results, Outstanding Labs Recommendation: Barrier(s) to disposition, Recommendation based on pending studies, treatments, or consults Kishore Report Given to: Dr. Karuna Novak Repor Time: 18:38
--- NOTE | 2017-11-14 15:15 | Emergency Department Note ---
START Narrative - START START: I examined this patient and my medical decision-making was reviewed with the Resident Physician. I agree with the documented findings, disposition and treatment plan as described except to the extent set forth below. Patient is a frail 87-year-old female [facility] She was brought in for abnormal lab work and unresponsiveness and altered mental status. She was found to have a sodium of 162 today on outpatient lab work. Patient is a DNR comfort care arrest. They had been intoxicated recently with placing her in hospice. The family member that is at the bedside stated that she did not want any of this extravagant resuscitation measures done. We will check a urinalysis here as they were unable to get one at the nursing facility. A consult with the palliative care physician. Disposition pending at this time based on lab work as well as the consultation.
[2017-11-14] MEDS: D5% in Water 1,000 ML IVC SCH ×2 (15:39→23:47)
[2017-11-14] MEDS ORDERED: Naloxone 0.4 MG/ML INJ IVP PRN (22:45)
--- NOTE | 2017-11-14 22:52 | Internal Med History&Physical ---
Date of Encounter: 11/14/17 Time of Encounter: 22:47 Internal Medicine - H&P: HPI Chief complaint: Abnormal labs Admitted From: Emergency Dept History of present illness: Ms. Torres is a 87 year old female with medical history significant for Parkinson' dementia, frequent falls who comes from a nursing facility after she was found to have hypernatremia with a sodium of 162. The patient has been altered for the past 2 days or so. She does have baseline dementia however her alteration has been worse. She was brought to the emergency department where family members did not want much done and palliative were consulted in the ED and will see the patient. Family is okay with IV fluids and antibiotics. Patient's laboratory workup besides the hypernatremia showed leukocytosis although the patient is not febrile. She is tachycardic somewhat. No scans were done in the ED as the family were not interested as they would like to make her hospice and would not pursue any treatment as there was findings on the CT head. Past Med Surg Social Fam HX - Past Medical History Medical history: asthma, dementia, osteoporosis, other Psychiatric history: depression - Past Surgical History Surgical History: hysterectomy, orthopedic, other - Social History Smoking Status: Never smoker Smokeless Tobacco Status: No Alcohol use: none Drug use: none - Family History Mother Living Status: Father Living Status: Hx Family Respiratory Disorders: Yes Internal Medicine - H&P: Meds Carbidopa/Levodopa [Carbidopa-Levodopa 25-100 Tab] 1 tab PO BID 06/19/16 [ History] Dextromethorphan HBr/Quinidine [Nuedexta 20-10 mg Capsule] 1 each PO BID #0 02/25 [History] Quetiapine Fumarate [Seroquel] 12.5 mg PO QAM 06/19/16 [History] Alendronate Sodium 70 mg PO SA 10/13/16 [History] Ergocalciferol (VITAMIN D2) [Vitamin D2] 50,000 unit PO SA 10/13/16 [History] Ketoconazole Shampoo [Nizoral Shampoo] 1 appl TP MOTH 10/13/16 [History] Bisacodyl [Dulcolax] 10 mg RC DAILY PRN 10/27/16 [History] HYDROcodone/Acet 7.5/325 mg [[place] 7.5-325 mg] 1 tab PO Q6H PRN #50 tablet 10/27 [Rx] Lactulose 20 gm PO QAM 10/27/16 [History] Magnesium Hydroxide [Milk of Magnesia] 2,400 mg PO DAILY PRN 10/27/16 [History] Acetaminophen [Tylenol] 650 mg PO 0800,1700 11/14/17 [History] Acetaminophen [Tylenol] 650 mg PO Q6H PRN 11/14/17 [History] Lactose-Reduced Food [Ensure Plus] 1 bottle PO 1000,1400 11/14/17 [History] Quetiapine Fumarate [Seroquel] 50 mg PO QPM 11/14/17 [History] 3 Allergy/AdvReac Type Severity Reaction Status Date / Time Sulfa (Sulfonamide Allergy See Verified 11/03/16 14:29 Antibiotics) Comments ROS unobtainable: due to mental status All Systems PM: A 10-system review of systems was performed and is negative for pertinent findings except as documented above in the HPI. - Constitutional Vitals: Temp Pulse Resp BP Pulse Ox 97.7 F 78 16 129/72 96 11/14/17 22:21 11/14/17 22:21 11/14/17 22:21 11/14/17 22:21 11/14/17 22:21 Exam: GEN: Patient is mostly unresponsive. Only responds to painful stimuli. HEENT: AT, NC, No cyanosis, oral mucosa is moist, No JVD Lymphatics: No lymphadenoapthy Eyes: Extrocular muscles intact, anicteric CVS:RRR. S1, S2, No m/r/g RESP: CTAB ABD: Soft, NT, ND, +BS EXT: No edema, No rashes, 2+ DP NEURO: Nonfocal, CN II-XII intact, No focal motor or sensory deficits Psych: Cooperative, Not anxious or depressedal - Assessment and plan (1) Acute metabolic encephalopathy Current Visit: No Status: Resolved Assessment and plan: Patient is only responsive to painful stimuli my exam. Likely from dehydration and hypernatremia. Family does not want much done. Palliative is consulted. (2) Hypernatremia Current Visit: Yes Status: Acute Assessment and plan: D5W started. Labs in the morning. Family is okay with labs. (3) Parkinsons Current Visit: No Status: Acute Assessment and plan: Continue home medications. 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 Qualifiers: Dementia behavioral disturbance: without behavioral disturbance Qualified Code(s): G20 - Parkinson's disease; F02.80 - Dementia in other diseases classified elsewhere without behavioral disturbance; F02.80 - Dementia in other diseases classified elsewhere without behavioral disturbance; F02.80 - Dementia in other diseases classified elsewhere without behavioral disturbance (5) DVT prophylaxis Current Visit: No Status: Acute Assessment and plan: Heparin subcutaneous - Time Spent With Patient Total time spent is greater than 50% in coordination of care (as documented) at patient's floor/unit and/or counseling patient:
[2017-11-15 07:16] LABS: BUN/Creatinine Ratio 65 (6-26); Blood Urea Nitrogen 65 mg/dL (8-23); Calcium 8.9 mg/dL (8.6-10.3); Carbon Dioxide 29 mEq/L (23-29); Chloride 121 mEq/L (98-107); Glucose 128 mg/dL (70-105); Magnesium 2.2 mg/dL (1.6-2.6); Osmolality,Calculated 344 (280-300); Potassium 3.8 mEq/L (3.5-5.1); Sodium 157 mEq/L (136-145); eGFR For African Americans > 60 (> 60); eGFR For Non-African Americans 52 (> 60)
[2017-11-15 07:31] LABS: Basophils % 0.2 %; Eosinophils # 0.3 K/mcL (0.0-0.6); Eosinophils % 3.2 %; Hematocrit 39.8 % (35.3-44.9); Hemoglobin 12.1 g/dL (11.5-15.4); Immature Granulocytes % 0.4 % (0-4); Lymphocytes # 1.9 K/mcL (0.6-4.6); Mean Corpuscular HGB Conc 30.4 g/dL (31.6-35.5); Mean Corpuscular Hemoglobin 30.8 pg (28.0-33.3); Mean Corpuscular Volume 101.3 fL (83.0-100.0); Monocytes # 0.6 K/mcL (0.0-1.3); Monocytes % 5.6 %; Neutrophils # 7.6 K/mcL (1.6-8.9); Platelet Count 185 K/mcL (140-400); Red Blood Count 3.93 M/mcL (3.82-4.97); Red Cell Distribution Width 11.4 % (11.5-14.5); Segmented Neutrophils % 72.6 %
[2017-11-15] MEDS: D5% in Water 1,000 ML IVC SCH ×2 (08:46→16:57)
[2017-11-15] MEDS: Carbidopa/Levodopa 25/100 TABLET PO SCH ×2 (08:47→20:00)
--- NOTE | 2017-11-15 10:18 | Palliative - Consult Note ---
<Zofia Grider - Last Filed: 11/15/17 10:15> Date of Encounter: 11/15/17 Time of Encounter: 10:15 - Assessment and Plan (1) Goals of care, counseling/discussion Current Visit: Yes Status: Acute Assessment and plan: Patient lives at [facility], has been there for about a year due to her Parkinson's dementia and multiple falls at home. She does have 2 designated power of special diet cook's, and I have discussed the plan of care with them. Plan: code status changed to DNR comfort care family would like consultation with [facility] for discussion with regards to transition to hospice (2) Encephalopathy Current Visit: Yes Status: Acute Assessment and plan: Likely multifactorial in setting of Parkinson's dementia, hypernatremia cannot rule out infectious causes at this time not able to obtain UA. (3) Hypernatremia Current Visit: Yes Status: Acute Assessment and plan: Management per primary service. (4) Parkinson's disease dementia Current Visit: No Status: Chronic Qualifiers: Dementia behavioral disturbance: without behavioral disturbance Qualified Code(s): G20 - Parkinson's disease; F02.80 - Dementia in other diseases classified elsewhere without behavioral disturbance; F02.80 - Dementia in other diseases classified elsewhere without behavioral disturbance; F02.80 - Dementia in other diseases classified elsewhere without behavioral disturbance Palliative-CN HPI - Data of Consult Patient: new to practice Consult date: 11/15/17 Requesting Physician: Ronit Krishnan CNP Primary Care Provider: PCP NONE - Consult Narrative Palliative Care/Comfort Measures: Hospice care Reason for consult: goals of care and hospice discussion. History of present illness: Ms. Torres is a 87 year old female with past medical history of Parkinson's dementia, frequent falls, osteoporosis. Patient comes from [facility]. [facility] for [facility] and altered mental status that is worse from her baseline. Upon admission, her sodium was 162. She has had altered mental status for 2 days prior to admission. Prior to her hospitalization, patient's power of attorneys were thinking about setting the patient up with hospice care. However, this has not been done due to recent events patients decline. CC: Ronit Krishnan CNP Past Med Surg Social Fam HX - Past Medical History Medical history: asthma, dementia, osteoporosis, other Psychiatric history: depression - Past Surgical History Surgical History: hysterectomy, orthopedic, other - Social History Smoking Status: Never smoker Smokeless Tobacco Status: No Alcohol use: none Drug use: none - Family History Mother Living Status: Father Living Status: Hx Family Respiratory Disorders: Yes Medications and Allergies Carbidopa/Levodopa [Carbidopa-Levodopa 25-100 Tab] 1 tab PO BID 06/19/16 [ History] Dextromethorphan HBr/Quinidine [Nuedexta 20-10 mg Capsule] 1 each PO BID #0 02/25 [History] Quetiapine Fumarate [Seroquel] 12.5 mg PO QAM 06/19/16 [History] Alendronate Sodium 70 mg PO SA 10/13/16 [History] Ergocalciferol (VITAMIN D2) [Vitamin D2] 50,000 unit PO SA 10/13/16 [History] Ketoconazole Shampoo [Nizoral Shampoo] 1 appl TP MOTH 10/13/16 [History] Bisacodyl [Dulcolax] 10 mg RC DAILY PRN 10/27/16 [History] HYDROcodone/Acet 7.5/325 mg [[place] 7.5-325 mg] 1 tab PO Q6H PRN #50 tablet 10/27 [Rx] Lactulose 20 gm PO QAM 10/27/16 [History] Magnesium Hydroxide [Milk of Magnesia] 2,400 mg PO DAILY PRN 10/27/16 [History] Acetaminophen [Tylenol] 650 mg PO 0800,1700 11/14/17 [History] Acetaminophen [Tylenol] 650 mg PO Q6H PRN 11/14/17 [History] Lactose-Reduced Food [Ensure Plus] 1 bottle PO 1000,1400 11/14/17 [History] Quetiapine Fumarate [Seroquel] 50 mg PO QPM 11/14/17 [History] 3 Allergy/AdvReac Type Severity Reaction Status Date / Time Sulfa (Sulfonamide Allergy See Verified 11/03/16 14:29 Antibiotics) Comments ROS unobtainable: due to mental status Palliative Care-Exam - Constitutional Vitals: Temp Pulse Resp BP Pulse Ox 97.6 F 59 14 154/70 95 11/15/17 06:44 11/15/17 06:44 11/15/17 06:44 11/15/17 06:44 11/15/17 06:44 General appearance: Present: thin Exam: She was laying in bed and resting comfortably. She is intermittently alert and follow simple commands. - Head Head Exam: Present: atraumatic, normocephalic - Respiratory Respiratory exam: Present: rhonchi, wheezes - Cardiovascular Cardiovascular exam: Present: RRR, +S1, +S2 - GI/Abdominal Exam GI/Abdominal exam: Present: diminished bowel sounds, soft - Neurological Exam Neurological exam: Present: alert, altered Internal Medicine - CN: Reslt - Labs CBC & Chem 7: 11/15/17 05:17 11/15/17 05:17 Labs: Short CBC 11/15/17 Range/Units 05:17 WBC 10.5 (4.3-11.1) K/mcL Hgb 12.1 (11.5-15.4) g/dL Hct 39.8 (35.3-44.9) % Plt Count 185 (140-400) K/mcL Neutrophils # 7.6 (1.6-8.9) K/mcL BMP 11/15/17 05:17 Sodium 157 H Potassium 3.8 Chloride 121 H Carbon Dioxide 29 BUN 65 H Creatinine 1.00 Glucose 128 H Calcium 8.9 Consult Discharge Plan - Plan Referrals: NONE,PCP [Primary Care Provider] - Palliative Quality Palliative Quality: Screen for Code Status: Yes, Screen for Goals of Care: Yes, Screen for Pain: Yes, If Pain Regimen Started, Initiate Bowel Regimen: Yes, Screen for Nausea/Vomitting: Yes <Hugo Carroll - Last Filed: 11/15/17 10:44> Date of Encounter: 11/15/17 Palliative-CN HPI - Data of Consult Requesting Physician: Ronit Krishnan CNP Primary Care Provider: PCP NONE - Consult Narrative History of present illness: Ms. Torres is a 87 year old female CC: Ronit Krishnan CNP Palliative Care-Exam - Constitutional Vitals: Temp Pulse Resp BP Pulse Ox 97.6 F 59 14 154/70 95 11/15/17 06:44 11/15/17 06:44 11/15/17 06:44 11/15/17 06:44 11/15/17 06:44 Internal Medicine - CN: Reslt - Labs CBC & Chem 7: 11/15/17 05:17 11/15/17 05:17 Labs: Short CBC 11/15/17 Range/Units 05:17 WBC 10.5 (4.3-11.1) K/mcL Hgb 12.1 (11.5-15.4) g/dL Hct 39.8 (35.3-44.9) % Plt Count 185 (140-400) K/mcL Neutrophils # 7.6 (1.6-8.9) K/mcL BMP 11/15/17 05:17 Sodium 157 H Potassium 3.8 Chloride 121 H Carbon Dioxide 29 BUN 65 H Creatinine 1.00 Glucose 128 H Calcium 8.9 - Attending Attestation I examined this patient and my medical decision-making was reviewed with the Resident Physician. I agree with the documented findings, disposition and treatment plan as described except to the extent set forth below. Palliative Quality Code Status: 11/15/17 10:17 DNR [Resuscitation Status: Active] [RES] Routine Comment: Resuscitation Status: DNR-Comfort Care
--- NOTE | 2017-11-15 14:34 | Internal Med Progress Note ---
Date of Encounter: 11/15/17 Time of Encounter: 14:30 - Assessment and plan (1) DVT prophylaxis Current Visit: No Status: Acute Assessment and plan: Continue Heparin subcutaneous (2) Parkinsons Current Visit: No Status: Acute Assessment and plan: Continue home medications, Parkinsons Dementia. (3) Parkinson's disease dementia Current Visit: No Status: Chronic Assessment and plan: Pallative team evaluated, continue supportive care. Qualifiers: Dementia behavioral disturbance: without behavioral disturbance Qualified Code(s): G20 - Parkinson's disease; F02.80 - Dementia in other diseases classified elsewhere without behavioral disturbance; F02.80 - Dementia in other diseases classified elsewhere without behavioral disturbance; F02.80 - Dementia in other diseases classified elsewhere without behavioral disturbance (4) Acute metabolic encephalopathy Current Visit: No Status: Resolved Assessment and plan: Patient was only responsive to painful stimuli on admission, likely from dehydration and hypernatremia. Family does not want much done. Palliative saw and no change in treatment plan at this time. Family wishes to treat hypernatremia. (5) Hypernatremia Current Visit: Yes Status: Acute Assessment and plan: Continue D5W, follow labs. Family is okay with labs. - Time Spent With Patient Total time spent is greater than 50% in coordination of care (as documented) at patient's floor/unit and/or counseling patient: - Subjective Interval history: Patient's family is at the bedside. The patient is actually speaking and interacting with the daughter and she responded to me by turning and looking at me and speaking. Per discussion with the family they wished to treat her dehydration and then [facility] and then consider a hospice evaluation. - Constitutional Vitals: Temp Pulse Resp BP Pulse Ox 97.6 F 59 14 154/70 95 11/15/17 06:44 11/15/17 06:44 11/15/17 06:44 11/15/17 06:44 11/15/17 06:44 General appearance: Present: cachectic, cooperative, A&O X 1, pleasant, no acute distress. Absent: answers questions appropriately - Head Head exam: Present: atraumatic, normocephalic - Eye Eye exam: Present: PERRL, conjuntiva pink, sclera anicteric Pupils: Present: PERRL - Neck Neck exam general surgery: Present: supple, trachea midline. Absent: lymphadenopathy - Respiratory Respiratory exam: Present: CTAB. Absent: accessory muscle use, rales, rhonchi, wheezes - Cardiovascular Cardiovascular exam: Present: RRR, +S1, +S2. Absent: diastolic murmur, gallop, rubs, systolic murmur - GI/Abdominal GI/Abdominal exam: Present: normal bowel sounds, soft, no peritoneal signs. Absent: distended, tenderness - Extremities Exam Extremities exam: Present: warm, radial pulses palpable and symmetrical. Absent : calf tenderness, cyanotic, pedal edema - Neurological Exam Neurological exam: Absent: pronater drift, facial droop, speech deficit Additional comments: responding to verbal stimuli and speaking - Skin Skin exam: Present: dry, intact, warm Internal Medicine: Result - Labs CBC & Chem 7: 11/15/17 05:17 11/15/17 05:17 Labs: Short CBC 11/15/17 Range/Units 05:17 WBC 10.5 (4.3-11.1) K/mcL Hgb 12.1 (11.5-15.4) g/dL Hct 39.8 (35.3-44.9) % Plt Count 185 (140-400) K/mcL Neutrophils # 7.6 (1.6-8.9) K/mcL BMP 11/15/17 05:17 Sodium 157 H Potassium 3.8 Chloride 121 H Carbon Dioxide 29 BUN 65 H Creatinine 1.00 Glucose 128 H Calcium 8.9 Consult Discharge Plan - Plan Referrals: NONE,PCP [Primary Care Provider] -
[2017-11-16] MEDS: D5% in Water 1,000 ML IVC SCH ×3 (01:12→15:08)
[2017-11-16 06:52] LABS: BUN/Creatinine Ratio 43 (6-26); Blood Urea Nitrogen 32 mg/dL (8-23); Calcium 8.5 mg/dL (8.6-10.3); Carbon Dioxide 27 mEq/L (23-29); Chloride 113 mEq/L (98-107); Glucose 130 mg/dL (70-105); Osmolality,Calculated 319 (280-300); Potassium 3.3 mEq/L (3.5-5.1); Sodium 150 mEq/L (136-145); eGFR For African Americans > 60 (> 60); eGFR For Non-African Americans > 60 (> 60)
[2017-11-16] MEDS ORDERED: Potassium Chloride Elixir 20 MEQ/15 ML UDC PO ONE (08:16)
[2017-11-16] MEDS: Carbidopa/Levodopa 25/100 TABLET PO SCH ×2 (09:31→20:16)
--- NOTE | 2017-11-16 18:04 | Internal Med Progress Note ---
Date of Encounter: 11/16/17 Time of Encounter: 18:02 - Assessment and plan (1) DVT prophylaxis Current Visit: No Status: Acute Assessment and plan: Continue Heparin subcu (2) Parkinsons Current Visit: No Status: Acute Assessment and plan: Continue home medications for Parkinsons Dementia. (3) Parkinson's disease dementia Current Visit: No Status: Chronic Assessment and plan: Pallative team evaluated, will continue supportive care. Qualifiers: Dementia behavioral disturbance: without behavioral disturbance Qualified Code(s): G20 - Parkinson's disease; F02.80 - Dementia in other diseases classified elsewhere without behavioral disturbance; F02.80 - Dementia in other diseases classified elsewhere without behavioral disturbance; F02.80 - Dementia in other diseases classified elsewhere without behavioral disturbance (4) Acute metabolic encephalopathy Current Visit: No Status: Resolved Assessment and plan: Patient was only responsive to painful stimuli on admission, likely from dehydration and hypernatremia. Family does not want aggressive therapy. Palliative saw and no change in treatment plan at this time. Family wishes to treat hypernatremia. (5) Hypernatremia Current Visit: Yes Status: Acute Assessment and plan: Continue D5W and follow labs. Family is okay with labs. - Time Spent With Patient Total time spent is greater than 50% in coordination of care (as documented) at patient's floor/unit and/or counseling patient: - Subjective Interval history: Patient's daughter is at the bedside. The patient is speaking and interacting with the daughter and she is eating breakfast with assist Per discussion with the family they wished to treat her dehydration and then have her return to [facility] and then consider a hospice evaluation. - Constitutional Vitals: Temp Pulse Resp BP Pulse Ox 97.7 F 82 14 123/61 99 11/16/17 07:46 11/16/17 07:46 11/16/17 07:46 11/16/17 07:46 11/16/17 07:46 General appearance: Present: cachectic, cooperative, A&O X 1, pleasant. Absent : answers questions appropriately - Head Head exam: Present: atraumatic, normocephalic - Eye Eye exam: Present: PERRL, conjuntiva pink, sclera anicteric Pupils: Present: PERRL - Neck Neck exam general surgery: Present: supple, trachea midline. Absent: lymphadenopathy - Respiratory Respiratory exam: Present: CTAB. Absent: accessory muscle use, rales, rhonchi, wheezes - Cardiovascular Cardiovascular exam: Present: RRR, +S1, +S2. Absent: diastolic murmur, gallop, rubs, systolic murmur - GI/Abdominal GI/Abdominal exam: Present: normal bowel sounds, soft, no peritoneal signs. Absent: distended, tenderness - Extremities Exam Extremities exam: Present: warm, radial pulses palpable and symmetrical. Absent : calf tenderness, cyanotic, pedal edema - Neurological Exam Neurological exam: Present: CN II-XII intact, oriented X3, no focal deficits. Absent: pronater drift, facial droop, speech deficit - Skin Skin exam: Present: dry, intact, normal color, warm Internal Medicine: Result - Labs CBC & Chem 7: 11/15/17 05:17 11/16/17 06:25 Labs: BMP 11/16/17 06:25 Sodium 150 H Potassium 3.3 L Chloride 113 H Carbon Dioxide 27 BUN 32 H Creatinine 0.74 Glucose 130 H Calcium 8.5 L Consult Discharge Plan - Plan Referrals: NONE,PCP [Non-Partnered Physician] -
[2017-11-17] MEDS: D5% in Water 1,000 ML IVC SCH ×2 (02:44→10:09)
[2017-11-17 06:02] LABS: BUN/Creatinine Ratio 35 (6-26); Blood Urea Nitrogen 22 mg/dL (8-23); Calcium 8.7 mg/dL (8.6-10.3); Carbon Dioxide 24 mEq/L (23-29); Chloride 115 mEq/L (98-107); Glucose 122 mg/dL (70-105); Osmolality,Calculated 303 (280-300); Sodium 144 mEq/L (136-145); eGFR For African Americans > 60 (> 60); eGFR For Non-African Americans > 60 (> 60)
--- NOTE | 2017-11-17 08:04 | Palliative Progress Note ---
<Zofia Grider - Last Filed: 11/17/17 08:08> Date of Encounter: 11/17/17 Time of Encounter: 08:02 - Assessment and plan (1) Goals of care, counseling/discussion Current Visit: Yes Status: Acute Assessment and plan: patient's family was not at bedside today. As discussed with her family/POA's prior, patient will be evaluated for hospice with [facility] (2) Encephalopathy Current Visit: Yes Status: Acute Assessment and plan: Encephalopathy secondary to unknown cause. Possible etiologies include worsening dementia, possible infectious cause. There is still concern for an infectious cause, recommend getting urine via straight cath (3) Hypernatremia Current Visit: Yes Status: Resolved Assessment and plan: Resolved. Sodium today was 144 (4) Parkinson's disease dementia Current Visit: No Status: Chronic Qualifiers: Dementia behavioral disturbance: without behavioral disturbance Qualified Code(s): G20 - Parkinson's disease; F02.80 - Dementia in other diseases classified elsewhere without behavioral disturbance; F02.80 - Dementia in other diseases classified elsewhere without behavioral disturbance; F02.80 - Dementia in other diseases classified elsewhere without behavioral disturbance - Time Spent With Patient Total time spent is greater than 50% in coordination of care (as documented) at patient's floor/unit and/or counseling patient: - Subjective Interval history: 87-year-old female evaluated at bedside. Patient was laying in bed sleeping comfortably. She was not able to be aroused, but did have resistant to flexion and extension of her upper extremities. No subjective history could be obtained. - Constitutional Vitals: Abnormal lab results MCV 101.3 fL (83.0-100.0) H 11/15/17 05:17 MCHC 30.4 g/dL (31.6-35.5) L 11/15/17 05:17 RDW 11.4 % (11.5-14.5) L 11/15/17 05:17 Chloride 115 mEq/L (98-107) H 11/17/17 05:07 BUN/Creatinine Ratio 35 (6-26) H 11/17/17 05:07 Glucose 122 mg/dL (70-105) H 11/17/17 05:07 Calculated Osmolality 303 (280-300) H 11/17/17 05:07 General appearance: Present: thin Exam: Patient laying in bed comfortably sleeping. - Head Head exam: Present: atraumatic, normocephalic - Respiratory Respiratory exam: Present: CTAB - Cardiovascular Cardiovascular exam: Present: RRR, +S1, +S2 - GI/Abdominal GI/Abdominal exam: Present: soft. Absent: distended, tenderness - Extremities Exam Extremities exam: Absent: pedal edema, tenderness Palliative Quality Palliative Quality: Screen for Code Status: Yes, Screen for Goals of Care: Yes, Screen for Pain: Yes, If Pain Regimen Started, Initiate Bowel Regimen: Yes, Screen for Nausea/Vomitting: Yes Code Status: 11/15/17 10:17 DNR [Resuscitation Status: Active] [RES] Routine Comment: Resuscitation Status: DNR-Comfort Care - Labs CBC & Chem 7: 11/15/17 05:17 11/17/17 05:07 Labs: Laboratory Results - last 24 hr 11/17/17 05:07 Sodium 144 Potassium 4.0 Chloride 115 H Carbon Dioxide 24 BUN 22 Creatinine 0.62 Est GFR ( Amer) > 60 Est GFR (Non-Af Amer) > 60 BUN/Creatinine Ratio 35 H Glucose 122 H Calculated Osmolality 303 H Calcium 8.7 Consult Discharge Plan - Plan Referrals: NONE,PCP [Non-Partnered Physician] - <Hugo Carroll - Last Filed: 11/17/17 08:49> Date of Encounter: 11/17/17 - Time Spent With Patient Total time spent is greater than 50% in coordination of care (as documented) at patient's floor/unit and/or counseling patient: - Constitutional Vitals: Abnormal lab results MCV 101.3 fL (83.0-100.0) H 11/15/17 05:17 MCHC 30.4 g/dL (31.6-35.5) L 11/15/17 05:17 RDW 11.4 % (11.5-14.5) L 11/15/17 05:17 Chloride 115 mEq/L (98-107) H 11/17/17 05:07 BUN/Creatinine Ratio 35 (6-26) H 11/17/17 05:07 Glucose 122 mg/dL (70-105) H 11/17/17 05:07 Calculated Osmolality 303 (280-300) H 11/17/17 05:07 - Attending Attestation I examined this patient and my medical decision-making was reviewed with the Resident Physician. I agree with the documented findings, disposition and treatment plan as described except to the extent set forth below. Palliative Quality Code Status: 11/15/17 10:17 DNR [Resuscitation Status: Active] [RES] Routine Comment: Resuscitation Status: DNR-Comfort Care - Labs CBC & Chem 7: 11/15/17 05:17 11/17/17 05:07 Labs: Laboratory Results - last 24 hr 11/17/17 05:07 Sodium 144 Potassium 4.0 Chloride 115 H Carbon Dioxide 24 BUN 22 Creatinine 0.62 Est GFR ( Amer) > 60 Est GFR (Non-Af Amer) > 60 BUN/Creatinine Ratio 35 H Glucose 122 H Calculated Osmolality 303 H Calcium 8.7
[2017-11-17] MEDS: Carbidopa/Levodopa 25/100 TABLET PO SCH (10:03)
[2017-11-17 10:57] VITALS: BP 128/60
--- NOTE | 2017-11-17 12:46 | Discharge Summary ---
- NOTES TO OUTPATIENT PROVIDER Notes to Outpatient Provider: Patient DNR/DNI/Comfort care. Family requesting nothing else be done, no straight cath for urine. Happy for discharge to SNF with Hospice consult. Date of Encounter: 11/17/17 Time of Encounter: 12:44 - Discharge Diagnosis (1) Parkinsons Priority: Primary Status: Chronic (2) Parkinson's disease dementia Priority: Primary Status: Chronic Qualifiers: Dementia behavioral disturbance: without behavioral disturbance Qualified Code(s): G20 - Parkinson's disease; F02.80 - Dementia in other diseases classified elsewhere without behavioral disturbance; F02.80 - Dementia in other diseases classified elsewhere without behavioral disturbance; F02.80 - Dementia in other diseases classified elsewhere without behavioral disturbance (3) Acute metabolic encephalopathy Priority: Primary Status: Resolved (4) Hypernatremia Priority: Primary Status: Resolved Hospital course: Ms. Torres is a 87 year old female who was admitted from [facility] with hyper natremia and alteration in mental status. She was started on IV fluids for dehydration and the sodium level has normalized. The patient's mentation waxes and wanes. Yesterday she was much more alert and actually was eating and drinking out of a sippy cup. Today she is minimally responsive. Spoke with the daughter and she request her go back to [facility] and have hospice evaluate the patient. She will be a DNR/DNI comfort care. Appreciate palliative team and put. The daughter requested do not straight catheter her for her urine and were unable to obtain up to this point. Afebrile heart rate is controlled respirations regular and easy and nonlabored and blood pressure is stable she is 97% on room air. He will be discharged back to her [facility] facility today. Daughters at the bedside and is in agreement with this plan Discharge discussed with: patient, family, nurse - Time Spent with Patient Total time spent providing and/or coordinating discharge services: Less than 30 minutes - Discharge Medications Prescriptions: HYDROcodone/Acet 7.5/325 mg [[place] 7.5-325 mg] 1 tab PO Q6H PRN 5 Days #20 tablet PRN Reason: Pain Home Medications: Carbidopa/Levodopa [Carbidopa-Levodopa 25-100 Tab] 1 tab PO BID 06/19/16 [ History] Dextromethorphan HBr/Quinidine [Nuedexta 20-10 mg Capsule] 1 each PO BID #0 02/25 [History] Quetiapine Fumarate [Seroquel] 12.5 mg PO QAM 06/19/16 [History] Alendronate Sodium 70 mg PO SA 10/13/16 [History] Ergocalciferol (VITAMIN D2) [Vitamin D2] 50,000 unit PO SA 10/13/16 [History] Ketoconazole Shampoo [Nizoral Shampoo] 1 appl TP MOTH 10/13/16 [History] Bisacodyl [Dulcolax] 10 mg RC DAILY PRN 10/27/16 [History] Lactulose 20 gm PO QAM 10/27/16 [History] Magnesium Hydroxide [Milk of Magnesia] 2,400 mg PO DAILY PRN 10/27/16 [History] Acetaminophen [Tylenol] 650 mg PO 0800,1700 11/14/17 [History] Acetaminophen [Tylenol] 650 mg PO Q6H PRN 11/14/17 [History] Lactose-Reduced Food [Ensure Plus] 1 bottle PO 1000,1400 11/14/17 [History] Quetiapine Fumarate [Seroquel] 50 mg PO QPM 11/14/17 [History] HYDROcodone/Acet 7.5/325 mg [[place] 7.5-325 mg] 1 tab PO Q6H PRN 5 Days #20 tablet 11/17/17 [Rx] Allergies/Adverse Reactions: 3 Allergy/AdvReac Type Severity Reaction Status Date / Time Sulfa (Sulfonamide Allergy See Verified 11/03/16 14:29 Antibiotics) Comments Date of admission: 11/14/17 22:45 Primary care physician: Anila Johnson Discharging clinician: Enriqueta Gonzalez Anticipated date of discharge: 11/17/17 - Constitutional Vitals: Temp Pulse Resp BP Pulse Ox 97.2 F L 74 16 128/60 97 11/17/17 09:00 11/17/17 09:00 11/17/17 09:00 11/17/17 09:00 11/17/17 09:00 General appearance: Present: cachectic, A&O X 1. Absent: answers questions appropriately Exam: Rather obtunded and was drawn this morning. The daughter tells me her mentation has been waxing and waning over the last little while at the [facility] facility - Head Head exam: Present: atraumatic, normocephalic - Eye Eye exam: Present: normal appearance, conjuntiva pink, sclera anicteric - Neck Neck exam general surgery: Present: supple, trachea midline. Absent: lymphadenopathy - Respiratory Respiratory exam: Present: CTAB. Absent: accessory muscle use, rales, rhonchi, wheezes - Cardiovascular Cardiovascular exam: Present: RRR, +S1, +S2. Absent: diastolic murmur, gallop, rubs, systolic murmur - GI/Abdominal GI/Abdominal exam: Present: normal bowel sounds, soft, no peritoneal signs. Absent: distended, tenderness - Extremities Exam Extremities exam: Present: warm, radial pulses palpable and symmetrical. Absent : calf tenderness, cyanotic, pedal edema - Neurological Exam Neurological exam: Absent: pronater drift, facial droop, speech deficit - Skin Skin exam: Present: dry, intact, normal color, warm - Patient Status Disposition: Transfer SNF Condition: Serious Functional capacity at discharge: bed bound Overall status at discharge: patient is not back to baseline - Discharge Instructions Follow Up With: NONE,PCP [Non-Partnered Physician] - - Diet and Activity Activity: increase activity as tolerated Diet: advance to your usual diet
--- NOTE | 2017-11-17 13:18 | Physician Discharge Referral ---
ExtendedCare Referral Info Transfer To: [facility] Provider in Charge: martín kothari Institutional Level of Care: Skilled (patient DNR DNI CC, to be evaluated by hospice) - Diagnosis (1) Parkinsons Priority: Primary Status: Chronic (2) Parkinson's disease dementia Priority: Primary Status: Chronic (3) Acute metabolic encephalopathy Priority: Primary Status: Resolved (4) Hypernatremia Priority: Primary Status: Resolved - Transfer Medications Prescriptions: HYDROcodone/Acet 7.5/325 mg [[place] 7.5-325 mg] 1 tab PO Q6H PRN 5 Days #20 tablet PRN Reason: Pain Home Medications: Carbidopa/Levodopa [Carbidopa-Levodopa 25-100 Tab] 1 tab PO BID 06/19/16 [ History] Dextromethorphan HBr/Quinidine [Nuedexta 20-10 mg Capsule] 1 each PO BID #0 02/25 [History] Quetiapine Fumarate [Seroquel] 12.5 mg PO QAM 06/19/16 [History] Alendronate Sodium 70 mg PO SA 10/13/16 [History] Ergocalciferol (VITAMIN D2) [Vitamin D2] 50,000 unit PO SA 10/13/16 [History] Ketoconazole Shampoo [Nizoral Shampoo] 1 appl TP MOTH 10/13/16 [History] Bisacodyl [Dulcolax] 10 mg RC DAILY PRN 10/27/16 [History] Lactulose 20 gm PO QAM 10/27/16 [History] Magnesium Hydroxide [Milk of Magnesia] 2,400 mg PO DAILY PRN 10/27/16 [History] Acetaminophen [Tylenol] 650 mg PO 0800,1700 11/14/17 [History] Acetaminophen [Tylenol] 650 mg PO Q6H PRN 11/14/17 [History] Lactose-Reduced Food [Ensure Plus] 1 bottle PO 1000,1400 11/14/17 [History] Quetiapine Fumarate [Seroquel] 50 mg PO QPM 11/14/17 [History] HYDROcodone/Acet 7.5/325 mg [[place] 7.5-325 mg] 1 tab PO Q6H PRN 5 Days #20 tablet 11/17/17 [Rx] Allergies/Adverse Reactions: 3 Allergy/AdvReac Type Severity Reaction Status Date / Time Sulfa (Sulfonamide Allergy See Verified 11/03/16 14:29 Antibiotics) Comments - Respiratory Orders None Smoking Cessation: Smoking cessation has been advised. For more information, call the [place] Tobacco Quit Line at 0-077-JOOQ-NOW. - Advance Directives Code Status: DNR-Comfort Care - Mobility Orders Bedrest - Rehabiliation Orders Rehab Potential: Poor - Diet Orders Pureed House Supplement per Dietary: ensure, sippy cup CERTIFICATION: I certify that the transfer of the above named patient to an Extended Care Facility is necessary for the continuing treatment of the diagnosis listed. The above information is true and accurate reflection of patient's current condition. Confidential - Redisclosure prohibited without a patient's written consent.
== END 2017-11-17 14:30 | DRG 640 ==
LOC: 3BNU 14:41 → EMEROO 14:41 → 3BNU 21:00
PROVIDERS: ADMIT Internal Medicine; ATTEND Registered Nurse